=== PATIENT | female | born 1980 | race Two or more races ===

== ENCOUNTER 2019-07-14 01:08 | Inpatient (IN) | payer BC ==
[~2019-07-14] VITALS: Ht 165.1 cm; Wt 98.0 kg
[2019-07-14] MEDS ORDERED: SODIUM CHLORIDE 0.9% 1,000 ML IV ONE ×3 (01:30→08:00)
[2019-07-14] MEDS ORDERED: MORPHINE SULF INJ 2 MG/ML SYRINGE 1ML IV ONE (01:30)
[2019-07-14] MEDS ORDERED: ONDANSETRON HCL 4 MG/2 ML VIAL IV ONE (01:30)
[2019-07-14 02:20] LABS: Basophils # (auto) 0 10 ^3/uL (0-0.2); Basophils % (auto) 0.1 % (0.0-2.0); Eosinophils # (auto) 0.1 10 ^3/uL (0-0.8); Eosinophils % (auto) 1.2 % (0.0-7.0); Hematocrit 36.3 % (36.0-46.0); Hemoglobin 12.4 g/dL (12.2-16.2); Lymphocytes # (auto) 2.1 10 ^3/uL (0.4-5.4); Lymphocytes % (auto) 17.6 % (10.0-50.0); Mean Corpuscular Hemoglobin 31.9 pg (28.0-32.0); Mean Corpuscular Hgb Conc. 34.1 g/dL (32.0-36.0); Mean Corpuscular Volume 93.5 fL (80.0-100.0); Monocytes # (auto) 0.8 10 ^3/uL (0-1.3); Monocytes % (auto) 6.7 % (0.0-12.0); Neutrophils # (auto) 8.7 10 ^3/uL (1.6-8.6); Neutrophils % (auto) 74.4 % (37.0-80.0); Nucleated Red Blood Cells % 0.1 %; Platelet Count (auto) 318 10^3/uL (140-450); Red Blood Cells 3.89 10^6/uL (4.0-5.20); Red Cell Distribution Width 13.5 % (11.8-14.3); White Blood Cell 11.7 10^3/uL (4.4-10.8)
[2019-07-14 02:42] LABS: Albumin 3.3 g/dL (3.4-5.0); Calcium 8.2 mg/dL (8.5-10.1); Potassium 3.6 mmol/L (3.5-5.1)
[2019-07-14 02:46] LABS: BUN/Creatinine Ratio 12.9; Bilirubin, Total 0.2 mg/dL (0.2-1.0); Total Protein 7.2 g/dL (6.4-8.2)
[2019-07-14] MEDS ORDERED: MORPHINE SULF INJ 2 MG/ML SYRINGE 1ML IV PRN (08:00)
[2019-07-14] MEDS ORDERED: NITROGLYCERIN 0.4 MG SL TAB SL PRN (08:00)
[2019-07-14] MEDS ORDERED: cefTRIAXone 1GM/50ML D5W 50 ML IV ONE (08:45)
[2019-07-14] MEDS ORDERED: DOXAPRAM HCL 20 MG/ML 20ML VIAL INJ IV ONE (08:47)
[2019-07-14] MEDS ORDERED: LIDOCAINE 1% HCL (LOCAL ANESTH.) INJ 20ML MDV ONE (08:47)
[2019-07-14] MEDS ORDERED: SUCCINYLCHOLINE CHLORIDE 20 MG/ML 10ML VIAL IV ONE (08:47)
[2019-07-14] MEDS ORDERED: PROPOFOL 10 MG/ML 20 ML IV ONE (08:54)
[2019-07-14] MEDS ORDERED: ONDANSETRON HCL 4 MG/2 ML VIAL ONE (08:54)
[2019-07-14] MEDS ORDERED: MIDAZOLAM HCL 1MG/1ML-2 ML VIAL ONE (08:54)
[2019-07-14] MEDS ORDERED: GLYCOPYRROLATE 0.2 MG/ML 1ML VIAL ONE (08:54)
[2019-07-14] MEDS ORDERED: SODIUM CHLORIDE LOCK 10 ML ONE (08:54)
[2019-07-14] MEDS ORDERED: MEPERIDINE HCL (25 MG/ML) 1ML VIAL ONE (08:54)
[2019-07-14] MEDS ORDERED: fentaNYL CITRATE 100 MCG/2 ML VL ONE (08:54)
[2019-07-14] MEDS ORDERED: ROCURONIUM 10MG/ML 10ML VIAL IV ONE (08:54)
[2019-07-14] MEDS ORDERED: NEOSTIGMINE 1 MG/ML INJ (10mg/10ML VIAL) IV ONE (09:03)
[2019-07-14 09:17] LABS: Partial Thromboplastin Time 25.9 sec (23.64-32.05)
[2019-07-14] MEDS ORDERED: METOCLOPRAMIDE HCL 5MG/ml INJ 2ml VIAL IV PRN (10:00)
[2019-07-14] MEDS ORDERED: MORPHINE SULFATE 4 MG/ML SYR/VIAL IV PRN (10:00)
[2019-07-14] MEDS ORDERED: fentaNYL CITRATE 100 MCG/2 ML VL IV PRN (10:00)
[2019-07-14] MEDS ORDERED: KETOROLAC TROMETH 30 MG/ML 1ML VIAL IV ONE (10:00)
[2019-07-14] MEDS ORDERED: KETOROLAC TROMETH 60MG/2ML VIAL ONE (10:25)
[2019-07-14] MEDS: LACTATED RINGER'S 1,000 ML IV SCH ×4 (10:38→19:00)
[2019-07-14] MEDS ORDERED: ACETAMINOPHEN IV 100 ML IV ONE ×2 (10:45→10:48)
[2019-07-14] MEDS ORDERED: ONDANSETRON HCL 4 MG/2 ML VIAL IV PRN (10:45)
[2019-07-14] MEDS ORDERED: KETOROLAC TROMETH 30 MG/ML 1ML VIAL IV PRN (10:45)
[2019-07-14] MEDS: HYDROmorphone HCL 2 MG/ML VL IV PRN ×4 (10:49→19:28)
[2019-07-14 11:47] VITALS: BP 116/72
--- NOTE | 2019-07-14 11:50 | NUR ---
Patient arrived to floor. Patient very groggy and sleepy. Patient shows no signs of distress at this time. Will continue to monitor.
[2019-07-14 17:00] VITALS: BP 112/52
--- NOTE | 2019-07-14 19:40 | NUR ---
Opening Shift Note Assumed care of patient, awake and alert. No S/S of distress/SOB or pain. Noted dressing on lower abdomen dry and intact, binder on. Instructed on POC and to call for assist PRN, patient verbalized understanding. Safety precautions in place, call light within reach, will continue to monitor for changes Q1hr and PRN.
[2019-07-14 20:00] VITALS: BP 105/58
[2019-07-14 21:54] VITALS: BP 105/58
[2019-07-15] MEDS: LACTATED RINGER'S 1,000 ML IV SCH ×3 (03:00→18:23)
[2019-07-15 05:00] VITALS: BP 104/60
[2019-07-15] MEDS: HYDROmorphone HCL 2 MG/ML VL IV PRN ×3 (05:51→18:23)
[2019-07-15 07:28] LABS: Basophils # (auto) 0 10 ^3/uL (0-0.2); Basophils % (auto) 0.1 % (0.0-2.0); Eosinophils # (auto) 0 10 ^3/uL (0-0.8); Hematocrit 31.2 % (36.0-46.0); Hemoglobin 10.6 g/dL (12.2-16.2); Lymphocytes # (auto) 1.8 10 ^3/uL (0.4-5.4); Lymphocytes % (auto) 12.6 % (10.0-50.0); Mean Corpuscular Hemoglobin 31.9 pg (28.0-32.0); Mean Corpuscular Hgb Conc. 33.9 g/dL (32.0-36.0); Monocytes # (auto) 0.8 10 ^3/uL (0-1.3); Monocytes % (auto) 5.7 % (0.0-12.0); Neutrophils # (auto) 11.6 10 ^3/uL (1.6-8.6); Neutrophils % (auto) 81.6 % (37.0-80.0); Platelet Count (auto) 278 10^3/uL (140-450); Red Blood Cells 3.32 10^6/uL (4.0-5.20); Red Cell Distribution Width 13.2 % (11.8-14.3); White Blood Cell 14.2 10^3/uL (4.4-10.8)
--- NOTE | 2019-07-15 07:45 | NUR ---
Opening Shift Note Assumed care of patient, awake and alert. No S/S of distress/SOB or pain. Bed is low, locked with 2x side rails up. Call light is within reach. Instructed on POC and to call for assist PRN, will continue to monitor for changes Q1hr and PRN.
--- NOTE | 2019-07-15 08:00 | NUR ---
Dr. Deleon Roundkylie Updated patient on POC. Per Dr. Deleon this nurse is to remove dressing to lower abdomen and removed the bond catheter. Patient is to ambulate as tolerated and may be d/c tomorrow. Patient verbalized understanding. This nurse will carry out orders.
[2019-07-15 09:18] VITALS: BP 102/55
--- NOTE | 2019-07-15 10:30 | NUR ---
Passing gas Patient stating that she is passing gas now, and has not had any nausea/vomiting with clear liquids. Bowel sounds present at this time. Per . Adrienne okay to advance diet as tolerated.
--- NOTE | 2019-07-15 10:50 | NUR ---
Bond catheter dc'd Order to discontinue bond catheter. Bond dc'd with clean technique following deflation of balloon. Patient tolerated well with no complaints of pain. Will continue care.
--- NOTE | 2019-07-15 11:30 | NUR ---
Pain Patient reporting 7/10 lower abdominal pain due to incision. Medicated per MD order. Will reassess.
--- NOTE | 2019-07-15 12:00 | NUR ---
Reassessment: Pain Patient reports 3/10 lower abdominal pain upon reassessment. Patient is resting comfortably at this time. Bed is low, locked with 2x rails up. Call light is within reach. Will continue to monitor.
[2019-07-15 12:42] VITALS: BP 114/62
--- NOTE | 2019-07-15 15:51 | NUR ---
Rounds Patient currently sitting in chair eating lunch. No reports of pain, n/v at this time. Call light within reach. Will continue to monitor.
[2019-07-15 17:18] VITALS: BP 115/61
--- NOTE | 2019-07-15 18:25 | NUR ---
Pain Patient reporting 7/10 lower abdominal pain/cramping secondary to surgical incision. Medicated per MD order. Will reassess.
--- NOTE | 2019-07-15 18:53 | NUR ---
Reassessment: Pain Patient reports 2/10 lower abdominal pain upon reassessment. Patient is resting comfortably at this time. Bed is low, locked with 2x rails up. Call light is within reach. Will continue to monitor.
--- NOTE | 2019-07-15 21:48 | NUR ---
1899. REPORT OBTAINED FROM DAY RN. 1999. PATIENT ASSESSED. DENIED PAIN BUT LOOKED ANXIOUS. SURGICAL INCISION SITE LOWER ABDOMEN INTACT. AXILLARY TEMP WAS 99.9. EXTRA BLANKET REMOVED. 2099. PATIENT COMPLAINED OF PAIN AT THE IV SITE ON LEFT WRIST. SITE EXAMINED. NO INFILTRATION BUT TENDERNESS. SAME DISCONTINUED. NEW IV INSERTED TO LEFT HAND GUAGE 22. IVF RESTARTED. 2104. PATIENT REPORTED THAT SHE WAS FEELING UNCOMFORTABLE AND WOULD LIKE TO GO HOME. WHEN FURTHER QUESTION SHE SAID SHE DID NOT HAVE PAIN BUT WANTED A FEMALE NURSE. I REASSURED HER AND WENT TO CALL THE CHARGE NURSE. WHEN I COULD IMMEDIATELT GET HER I CALLED THE [employer] [facility]PARTMENT CHAIR WHO TOLD ME HE WOULD TRANSMIT MY CONCERN TO THE CHARGE NURSE. 2139. PATIENT WAS ASSIGNED TO MARNIE CRUM. 2154.PATIENT HANDED OVER TO MARNIE.
--- NOTE | 2019-07-15 22:00 | NUR ---
Assumed Care patient resting in bed, alert and oriented x 4, follows direction, clear speech. On room air with even and unlabored respirations, no s/s of distress or SOB. Patient returned demonstration of incentive spirometer with proper use, 1500ml inspire volume. Patient ambulates independently with steady gait. Lower abd incision clean and dry, rogelio intact, no redness noted. Hypoactive bowel sounds, patient reports passing gas. Abd binder on. PIV to right hand 22g intact, not patent, tender, IV DC'd with clean sterile technique, catheter fully intact. Pressure dressing applied to site. Patient tolerated well. Instructed on POC, patient verbalized understanding, will continue care. Instructed to call for assistance PRN.
--- NOTE | 2019-07-15 22:15 | NUR ---
IV insertion IV access obtained, via clean sterile technique by inserting 22 gauge catheter at left forearm after 1 attempt(s). IV secured properly. No trauma to site. Patient tolerated well.
[2019-07-16] MEDS: LACTATED RINGER'S 1,000 ML IV SCH (04:24)
[2019-07-16 04:49] VITALS: BP 111/67
--- NOTE | 2019-07-16 06:59 | NUR ---
Closing Note status unchanged. patient resting in bed on room air with even and unlabored respirations, no s/s of distress. abd binder on. Bed in lowest locked position with side rails up x 2 and call light within reach. Endorsed care to day shift RN.
--- NOTE | 2019-07-16 07:30 | NUR ---
Opening Note Assumed patient care from AZUL RN.
--- NOTE | 2019-07-16 08:30 | NUR ---
MD at Station Spoke with Dr. Deleon regarding patient plan of care. Per MD, patient to see MD for staple removal, prescriptions pending. MD notifed of patient request for prescription for constipation medication, per MD, will write prescription for colace for home use.
[2019-07-16 09:00] VITALS: BP 110/61
--- NOTE | 2019-07-16 09:00 | NUR ---
Called MD office Called MD office regarding prescriptions. Spoke with Connie regarding setting up follow up appointment for patient. Patient's appointment on 07/24/2019 at 0900, as office is not open on 07/20 (holiday observed). Will notify MD.
--- NOTE | 2019-07-16 09:15 | NUR ---
at station Dr. Deleon at nurse's station with prescriptions for patient. MD notified that earliest available appointment time for follow up/staple removal will be 07/23 at 0900. Per MD this is acceptable.
[2019-07-16 10:36] VITALS: BP 110/61
[2019-07-16 12:32] VITALS: BP 152/86
--- NOTE | 2019-07-16 12:56 | NUR ---
Discharge Discharge instructions and prescriptions given as ordered. Patient aware of follow up appointment for staple removal. Encourage to follow up with PMD as instructed. All questions and concerns addressed. Patient verbalized understanding. IV removed with catheter intact, pressure dressing applied. Patient taken to vehicle via wheelchair with all personal belongings, accompanied by staff. No distress noted at time of departure.
== END 2019-07-16 12:56 | disposition home or self-care (01) | DRG 817 ==
LOC: EDBD 01:08 → ER 01:16 → OVERFLOW 01:17 → WEST WING 11:47
PROVIDERS: ADMIT Specialist; ATTEND Specialist
PROC: 10T20ZZ Resection of Products of Conception, Ectopic, Open Approach (ICD-10-PCS; 2019-07-14)
PROC: 0UT50ZZ Resection of Right Fallopian Tube, Open Approach (ICD-10-PCS; principal; 2019-07-14 09:03)
DX: O00.80 Other ectopic pregnancy without intrauterine pregnancy (principal); K66.1 Hemoperitoneum; E66.9 Obesity, unspecified; Z87.59 Personal history of other complications of pregnancy, childbirth and the puerperium; Z79.899 Other long term (current) drug therapy
CPT/HCPCS: 36415; 76801; 76817; 80053; 84702; 85025; 85610; 85730; 86850; 86900; 86901; 86920; 97163; G0378; J0131; J0330; J0696; J1885; J2001; J2250; J2405; J2704

== ENCOUNTER → 2019-07-24 | Outpatient (CLI) | payer BC ==
[2019-07-24 09:59] LABS: Basophils # (auto) 0 10 ^3/uL (0-0.2); Basophils % (auto) 0.3 % (0.0-2.0); Eosinophils # (auto) 0.5 10 ^3/uL (0-0.8); Eosinophils % (auto) 5.8 % (0.0-7.0); Hematocrit 35.9 % (36.0-46.0); Hemoglobin 12.1 g/dL (12.2-16.2); Lymphocytes # (auto) 2.2 10 ^3/uL (0.4-5.4); Lymphocytes % (auto) 25.2 % (10.0-50.0); Mean Corpuscular Hemoglobin 31.3 pg (28.0-32.0); Mean Corpuscular Hgb Conc. 33.6 g/dL (32.0-36.0); Mean Corpuscular Volume 93.2 fL (80.0-100.0); Monocytes # (auto) 0.6 10 ^3/uL (0-1.3); Monocytes % (auto) 7.3 % (0.0-12.0); Neutrophils # (auto) 5.3 10 ^3/uL (1.6-8.6); Neutrophils % (auto) 61.4 % (37.0-80.0); Platelet Count (auto) 409 10^3/uL (140-450); Red Blood Cells 3.86 10^6/uL (4.0-5.20); Red Cell Distribution Width 13.6 % (11.8-14.3); White Blood Cell 8.6 10^3/uL (4.4-10.8)
== END | disposition home or self-care (01) ==
LOC: LAB 09:46
PROVIDERS: ATTEND Specialist
DX: R42 Dizziness and giddiness (principal)
CPT/HCPCS: 36415; 84702; 85025